=== PATIENT | male | born 1960 ===

== ENCOUNTER 2025-07-06 09:00 | Day surgery (SDC) | payer OTHER ==
[2025-07-03 10:18] LABS: BASO % 0.4 % (0.1-1.2); EOS # 0.04 (0.04-0.54); EOS % 0.6 % (0.7-7.0); LYMPH # 1.96 (1.18-3.74); LYMPH % 28.1 % (19.3-53.1); MEAN PLATELET VOLUME 9.10 fl (9.4-12.4); MONO # 0.39 (0.24-0.82); MONO % 5.6 % (4.7-12.5); NEUT # 4.53 (1.56-6.13); NEUT % 65.0 % (34.0-71.1); RED CELL DISTRIBUTION WIDTH 13.2 % (11.6-14.4)
[2025-07-03 10:19] LABS: URINE APPEARANCE Clear; URINE BILIRRUBIN Negative (NEGATIVE); URINE BLOOD Negative; URINE COLOR Yellow; URINE GLUCOSE Negative (NEGATIVE); URINE KETONE Negative (NEGATIVE); URINE LEUKOCYTE Small; URINE NITRATE Negative; URINE PROTEIN Trace (NEGATIVE); URINE UROBILINOGEN 1.0 E.U./dl
[2025-07-03 10:23] LABS: URINE BACTERIA 53.9 uL (0.0-1933); URINE EPITHELIAL CELLS 5.8 uL (0.0-38.8); URINE RBC 15.9 uL (0.0-20.8); URINE WBC 204.0 uL (0.0-23.2)
[2025-07-03 10:30] LABS: URINE CAST 0.43 uL (0.0-1.40)
[2025-07-03 10:55] VITALS: BP 142/87
[2025-07-03 11:04] LABS: BUN CREA RATIO 9.0 (7.0-25.0); CREATININE SERUM 1.38 mg/dL (0.70-1.30); GFR 51.39; GLUCOSE FASTING 91.0 mg/dL (65-100); OSMOLALITY SERUM 283.0 MOSM/KG (275-295)
[2025-07-03 11:24] LABS: INR 0.98
[~2025-07-06] VITALS: Ht 167.6 cm; Wt 65.8 kg
[~2025-07-06 09:00] MED LIST: CENTRUM ADULTS1 EACH PO; LAMICTAL100 M1 PO; WELLBUTRIN XL300 MG PO
[2025-07-06] MEDS ORDERED: CEFAZOLIN SODIUM 1,000 MG VIAL ONE (10:19)
[2025-07-06] MEDS ORDERED: SUGAMMADEX SODIUM 200 MG/2 ML VIAL IV ONE (13:04)
[2025-07-06] MEDS ORDERED: AMOX-CLAV 875-1 EAC1 PO (13:25)
[2025-07-06] MEDS ORDERED: AYR SALINE50 ML NASAL (13:26)
[2025-07-06] MEDS ORDERED: OXYMETAZOLINE HCL 15 ML NASAL DROPS NASAL ONE (13:45)
[2025-07-06] MEDS ORDERED: ONDANSETRON HCL 2 MG/ML VIAL IV ONE (14:20)
[2025-07-06] MEDS ORDERED: ONDANSETRON HCL 2 MG/ML VIAL ONE (14:22)
== END 2025-07-06 16:00 | disposition home or self-care (01) ==
LOC: CIR.AMB 09:00
PROVIDERS: ATTEND Otolaryngology Otology & Neurotology
DX: J32.4 Chronic pansinusitis (principal); J34.3 Hypertrophy of nasal turbinates; S02.2XXA Fracture of nasal bones, initial encounter for closed fracture